=== PATIENT | female | born 1960 | race Caucasian/White ===

== ENCOUNTER 2016-10-01 16:01 | Emergency (ER) | payer SELFPAY ==
[2016-10-01] MEDS ORDERED: KETOROLAC 30 MG/ML VIAL ONE (17:05)
[2016-10-01] MEDS ORDERED: MORPHINE 4 MG/ML SYR ONE (17:05)
== END 2016-10-01 18:35 | disposition home or self-care (01) ==
LOC: ER 16:01
DX: R07.89 Other chest pain (principal); Z79.899 Other long term (current) drug therapy; F17.210 Nicotine dependence, cigarettes, uncomplicated
CPT/HCPCS: 36415; 80048; 82553; 83735; 84484; 85025; 93005; 96374; 96375